=== PATIENT | female | born 1975 | race Caucasian/White ===

== ENCOUNTER → 2017-12-11 | Outpatient (CLI) | payer BC ==
[~2017-12-11] MED LIST: IBU600 PO; IBUP600T22 PO; LISI20TA29 PO; NORG1TAB74 PO; NORG1TAB96 PO; PANT40TA65 PO; PER PO; PREN-67 PO
--- NOTE | 2017-12-12 11:52 | RADIOLOGY IMAGING REPORT ---
FACILITY: [facility] PATIENT NAME: FARIDEH VASQUEZ : [id number] MR: [id number] V: [id number] EXAM DATE: [id number] ORDERING PHYSICIAN: LESLEY COLEMAN TECHNOLOGIST: Jennifer De La Cruz PROCEDURE:BILATERAL DIGITAL SCREENING MAMMOGRAM WITH CAD ASSISTED INTERPRETATION & 3D TOMOSYNTHESIS COMPARISON:Prior mammograms 10/30/12. INDICATIONS:SCREENING FINDINGS: There is scattered fibroglandular tissue. New focal asymmetry in the Right outer breast approximately 8cm deep to the nipple based on CC view. This projects below the nipple line on the MLO view. This measures approximately 7-8mm. Otherwise no change compared to prior. No suspicious microcalcification. DIAGNOSTIC CATEGORY 0--INCOMPLETE: NEED ADDITIONAL IMAGING EVALUATION. RECOMMENDATIONS: ADDITIONAL MAMMOGRAPHIC VIEWS REQUIRED: RIGHT BREAST. IMPRESSION: BIRADS 0: Incomplete. Needs additional imaging, Spot compression Right breast CC and MLO views, straight lateral Right breast view and Right breast Ultrasound (if needed) recommended for further evaluation. Dictated by: Rodney Kimball on 12/12/2017 at 10:40 Transcribed by: ÁLVARO on 12/12/2017 at 10:54 Approved by: Rodney Kimball on 12/12/2017 at 11:51 [facility]
== END ==
LOC: MAMO 01:46
PROVIDERS: ATTEND Nurse Practitioner Family
DX: Z12.31 Encounter for screening mammogram for malignant neoplasm of breast (principal); R92.8 Other abnormal and inconclusive findings on diagnostic imaging of breast
CPT/HCPCS: 77063; 77067

== ENCOUNTER → 2018-01-22 | Outpatient (CLI) | payer BC ==
--- NOTE | 2018-01-23 08:31 | RADIOLOGY IMAGING REPORT ---
FACILITY: [facility] PATIENT NAME: FARIDEH VASQUEZ : [id number] MR: [id number] V: [id number] EXAM DATE: ORDERING PHYSICIAN: LESLEY COLEMAN TECHNOLOGIST: Jennifer De La Cruz PROCEDURE:RIGHT DIGITAL DIAGNOSTIC MAMMOGRAM WITH CAD ASSISTED INTERPRETATION & 3D TOMOSYNTHESIS COMPARISON:Prior Right mammogram 12/11/17, 10/30/12. INDICATIONS:further evaluation FINDINGS: The patient returns for a full field mediolateral view of the Right breast a full field Right rolled CC view and Spot compression view in the Right CC & MLO projections with 3D breast Tomosynthesis. The small focal area of increased density in the inferior lateral Right breast appeared compressible and apparently represented a summation shadow. There is no demonstration of malignant appearing mass or calcification in the Right breast. DIAGNOSTIC CATEGORY 1--NEGATIVE. RECOMMENDATIONS: ROUTINE MAMMOGRAM AND CLINICAL EVALUATION. IMPRESSION: BIRADS 1: Negative. No significant abnormality is seen. Dictated by: Kenzie Najera M.D. on 01/22/2018 at 16:59 Transcribed by: ÁLVARO on 01/23/2018 at 8:12 Approved by: Kenzie Najera M.D. on 01/23/2018 at 8:30 [facility]
== END ==
LOC: MAMO 02:29
PROVIDERS: ATTEND Nurse Practitioner Family
DX: R92.8 Other abnormal and inconclusive findings on diagnostic imaging of breast (principal)
CPT/HCPCS: 77061; 77065